=== PATIENT | female | born 1980 | race Two or more races ===

== ENCOUNTER 2017-04-30 09:08 | Emergency (ER) | payer BC ==
[~2017-04-30] VITALS: Ht 157.5 cm; Wt 99.8 kg
[2017-04-30 09:23] VITALS: BP 117/77
== END 2017-04-30 10:47 | disposition home or self-care (01) ==
LOC: ER 09:08
DX: L03.317 Cellulitis of buttock (principal)

== ENCOUNTER 2018-08-31 05:36 | Emergency (ER) | payer SELFPAY ==
[~2018-08-31] VITALS: Ht 157.5 cm; Wt 99.8 kg
[2018-08-31 06:04] LABS: Basophils # (auto) 0 uL; Basophils % (auto) 0.5 % (0.0-2.0); Eosinophils # (auto) 0.1 uL; Eosinophils % (auto) 1.9 % (0.0-7.0); Hematocrit 41.2 % (36.0-46.0); Hemoglobin 13.5 g/dL (12.2-16.2); Lymphocytes # (auto) 2.5 uL; Lymphocytes % (auto) 42.6 % (10.0-50.0); Mean Corpuscular Hgb Conc. 32.8 g/dL (32.0-36.0); Mean Corpuscular Volume 85.2 fL (80.0-100.0); Monocytes # (auto) 0.4 uL; Monocytes % (auto) 6.3 % (0.0-12.0); Neutrophils # (auto) 2.9 uL; Neutrophils % (auto) 48.7 % (37.0-80.0); Nucleated Red Blood Cells % 0.1 %; Platelet Count (auto) 244 10^3/uL (140-450); Red Blood Cells 4.83 10^6/uL (4.0-5.20); Red Cell Distribution Width 14.5 % (11.8-14.3)
[2018-08-31 06:24] LABS: Alanine Aminotransferase 34 U/L (13-56); Albumin 3.7 g/dL (3.4-5.0); Anion Gap 6 (5-15); Aspartate Aminotransferase 17 U/L (15-37); BUN/Creatinine Ratio 15.5; Blood Urea Nitrogen 9 mg/dL (7-18); Calcium 8.4 mg/dL (8.5-10.1); Carbon Dioxide 28 mmol/L (21-32); Chloride 106 mmol/L (98-107); GFR African American > 60 mL/min; GFR Non-African American > 60 mL/min; Glucose 120 mg/dL (74-106); Potassium 3.6 mmol/L (3.5-5.1); Sodium 140 mmol/L (136-145)
[2018-08-31 06:26] LABS: Alkaline Phosphatase 94 U/L (45-117); Bilirubin, Total 0.7 mg/dL (0.2-1.0); Total Protein 7.8 g/dL (6.4-8.2)
[2018-08-31] MEDS ORDERED: KETOROLAC TROMETH 60MG/2ML VIAL IM ONE (07:00)
[2018-08-31 07:03] VITALS: BP 130/80
== END 2018-08-31 07:34 | disposition home or self-care (01) ==
LOC: ER 05:43
DX: N20.0 Calculus of kidney (principal); K80.20 Calculus of gallbladder without cholecystitis without obstruction
CPT/HCPCS: 36415; 74176; 80053; 81002; 85025; 96372; 99284; J1885